=== PATIENT | female | born 1990 | race Caucasian/White ===

== ENCOUNTER 2019-07-26 19:29 | Emergency (ER) | payer OTHER ==
--- NOTE | 2019-07-26 21:27 | ED Physician Documentation ---
History of Present Illness - Stated complaint Stated Complaint: R ARM PAIN - Chief complaint Chief Complaint: Ext Problem - History obtained from History obtained from: Patient, Family - History of Present Illness Timing: How many days ago (3) - Additonal information Additional information: 29-year-old female who was recently had ERCP and cholecystectomy done had an IV placed in her arm 10 days ago for these procedures and she is now developed some swelling to the arm in general and some odd pain associated with this. She has a feeling of burning sensation to the skin. 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 : None Psych: None Musculoskeletal: None - Past Surgical History Past Surgical History: Yes General: Cholecystectomy - Present Medications Home Medications: Ambulatory Orders Medication Instructions Recorded Confirmed No Known Home Medications 07/26/19 07/26/19 - Allergies Allergies/Adverse Reactions: Allergies Allergy/AdvReac Type Severity Reaction Status Date / Time No Known Drug Allergies Allergy Verified 07/26/19 19:48 - Social History Does the pt smoke?: No Smoking Status: Never smoker Does the pt drink ETOH?: Yes Does the pt have substance abuse?: No - Immunizations Immunizations are current?: Yes - POLST Patient has POLST: No PD ED PE NORMAL - Vitals Vital signs reviewed: Yes (tachy ) - General General: Alert and oriented X 3, No acute distress, Well developed/nourished - HEENT HEENT: Atraumatic, PERRL, EOMI - Neck Neck: Supple, no meningeal sign - Respiratory Respiratory: No respiratory distress - Derm Derm: Normal color, Warm and dry, No rash - Extremities Extremities: No deformity, Other (There is subtle swelling to the right upper ext. Normal joints with normal ROM and no deformity/trauma to the area. There is no erythema noted. 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, No motor deficit, No sensory deficit, Normal speech Eye Opening: Spontaneous Motor: Obeys Commands Verbal: Oriented GCS Score: 15 - Psych Psych: Normal mood, Normal affect Results - Vitals Vitals: Vital Signs - 24 hr 07/26/19 19:45 Temperature 37.0 C Heart Rate 102 H Respiratory 18 Rate Blood Pressure 122/76 O2 Saturation 100 Oxygen O2 Source Room air - Rads (name of study) u/s RUE Radiology: Prelim report reviewed (Impression: No evidence for deep venous thrombosis.), EMP read indepedently, See rad report PD MEDICAL DECISION MAKING - ED course Complexity details: reviewed results, re-evaluated patient, considered differential, d/w patient, d/w family ED course: 29-year-old female who had 3 IVs placed over the course of several days has pain in the right upper extremity a week after the IVs of come out. I do not find any evidence of deep vein thrombosis on today's evaluation and I am not finding evidence of infection. I suspect patient may have some superficial thrombophlebitis and expect complete resolution. Departure - Departure Disposition: 01 Home, Self Care Clinical Impression: Pain in extremity Qualifiers: Extremity pain location: upper extremity Laterality: right Qualified Code(s): M79.601 - Pain in right arm Condition: Stable Instructions: ED Phlebitis Superficial Follow-Up: KELSEY Schafer [Provider Group]
--- NOTE | 2019-07-26 22:37 | Ultrasound Report ---
Reason: RUE swelling pain 10 days after IV Procedure Date: 07/26/2019 Accession Number: [id number] / [id number] Procedure: US - Duplex Ext Veins Right CPT Code: FULL RESULT: EXAM: RIGHT LOWER EXTREMITY VENOUS ULTRASOUND EXAM DATE: 07/26/2019 09:37 PM. CLINICAL HISTORY: RUE swelling pain 10 days after IV. COMPARISON: None. TECHNIQUE: Real-time sonographic vascular imaging was performed by the adjunct faculty for medical terminology through the lower extremity utilizing both color-flow and Doppler spectral analysis. Multiple personal service representative static images were saved for review. FINDINGS: Common Femoral Vein (CFV): Normal. CFV-GSV Junction: Normal. Profunda Femoral Vein (PFV): Normal. Femoral Vein (FV) Prox: Normal. Femoral Vein (FV) Mid: Normal. Femoral Vein (FV) Dist: Normal. Popliteal Vein: Normal. Posterior Tibial Veins: Normal. Peroneal Veins: Normal. Other: None. IMPRESSION: No evidence for deep venous thrombosis. [facility]
[2019-07-26 22:55] VITALS: BP 132/78
== END 2019-07-26 22:53 | disposition home or self-care (01) ==
LOC: ED 19:29
DX: M79.601 Pain in right arm (principal); M79.89 Other specified soft tissue disorders; Z98.890 Other specified postprocedural states; Z90.49 Acquired absence of other specified parts of digestive tract
CPT/HCPCS: 99282; 99284